=== PATIENT | female | born 1985 | race Caucasian/White ===

== ENCOUNTER → 2017-03-15 | Outpatient (REF) | payer OTHER | LOC: M LAB REF 16:21 | PROVIDERS: ATTEND Physician Assistant | DX: N39.0 Urinary tract infection, site not specified (principal) ==

== ENCOUNTER 2017-12-30 23:51 | Emergency (ER) | payer OTHER ==
[2017-12-31] MEDS: IBUPROFEN 800 MG TAB PO (01:10)
== END 2017-12-31 01:19 | disposition home or self-care (01) ==
LOC: M ED 23:51
DX: S93.502A Unspecified sprain of left great toe, initial encounter (principal); X50.0XXA Overexertion from strenuous movement or load, initial encounter; Y92.89 Other specified places as the place of occurrence of the external cause
CPT/HCPCS: 73660

== ENCOUNTER → 2018-07-24 | Outpatient (REF) | payer OTHER | LOC: M WUC 12:08 | DX: J20.9 Acute bronchitis, unspecified (principal); J02.9 Acute pharyngitis, unspecified ==

== ENCOUNTER → 2018-07-29 | Outpatient (CLI) | payer OTHER | LOC: M WUC 09:51 | DX: R05 Cough (principal); R50.9 Fever, unspecified | CPT/HCPCS: 71046 ==

== ENCOUNTER 2021-06-01 15:56 | Emergency (ER) | payer OTHER ==
[~2021-06-01] VITALS: Ht 160 cm; Wt 150.0 kg
--- NOTE | 2021-06-01 17:17 | REP ---
INDICATION: SOB. COMPARISON: 07/29/2018 the latest prior TECHNIQUE: Portable FINDINGS: The technique utilized in obtaining the radiograph has magnified the cardiac silhouette and attenuated the interstitial markings. The cardiomediastinal silhouette is unchanged and again seen to be within normal limits. Nodular densities are seen throughout both lung cole representing a change from the prior exam. There are no patchy opacities or pleural effusion. The osseous structures are within normal limits. IMPRESSION: Numerous parenchymal nodules. Contrast-enhanced CT examination of the chest is recommended. <Electronically signed by Iván Birch > 06/01/21 [id number]
[2021-06-01 18:15] VITALS: BP 118/63
[2021-06-01] MEDS ORDERED: IBUP-1114 PO (18:17)
[2021-06-01 18:19] VITALS: O2SAT 98
[2021-06-01 19:14] LABS: BASO % 0.3 % (0.0-1.0); EOS % 0.3 % (0.0-3.0); HEMATOCRIT 38.5 % (36.0-47.0); HEMOGLOBIN 12.4 g/dl (12.0-15.5); LYMPH # 1.9 10^3/uL (1.5-5.0); LYMPH % 30.1 % (24.0-44.0); MEAN CORPUSCULAR HEMOGLOBIN 26.6 pg (27.0-33.0); MEAN CORPUSCULAR HGB CONC 32.2 g/dl (32.0-36.5); MEAN CORPUSCULAR VOLUME 82.6 fl (80.0-96.0); MONO # 0.3 10^3/uL (0.0-0.8); MONO % 5.4 % (2.0-8.0); NEUTROPHILS % 63.4 % (36.0-66.0); RED BLOOD COUNT 4.66 10^6/uL (4.00-5.40); WHITE BLOOD COUNT 6.3 10^3/uL (4.0-10.0)
[2021-06-01 19:32] LABS: PLATELET COUNT, AUTOMATED 195 10^3/uL (150-450)
[2021-06-01 19:39] LABS: INR 0.96; PARTIAL THROMBOPLASTIN TIME 27.8 SECONDS (25.9-37.0); PROTHROMBIN TIME 13.2 SECONDS (12.7-14.5)
[2021-06-01 19:42] LABS: D-DIMER QUANT 583.63 ng/ml (<500)
[2021-06-01 21:11] LABS: HCG, SERUM QUALITATIVE NEGATIVE (NEGATIVE)
[2021-06-01 21:14] LABS: ALBUMIN 3.5 GM/DL (3.2-5.2); ALT/SGPT 47 U/L (12-78); BILIRUBIN,TOTAL 0.7 MG/DL (0.2-1.0); BLOOD UREA NITROGEN 12 MG/DL (7-18); C REACTIVE PROTEIN QUANTITATIV 6.84 MG/DL (0.00-0.30); CALCIUM LEVEL 8.1 MG/DL (8.5-10.1); CARBON DIOXIDE LEVEL 26 MEQ/L (21-32); CHLORIDE LEVEL 103 MEQ/L (98-107); CK-MB VALUE MASS 1.4 NG/ML (<3.6); CPK CREATINE PHOSPHOKINASE 255 U/L (26-192); FERRITIN 192 NG/ML (8-252); GLOMERULAR FILTRATION RATE > 60.0 (>60); GLUCOSE, FASTING 84 MG/DL (70-100); LDH LACTATE DEHYDROGENASE 291 U/L (84-246); MB/CK RELATIVE INDEX 0.55 (< OR =4); POTASSIUM SERUM 3.5 MEQ/L (3.5-5.1); SODIUM LEVEL 137 MEQ/L (136-145); TOTAL PROTEIN 7.2 GM/DL (6.4-8.2); TROPONIN I < 0.02 NG/ML (< 0.10)
[2021-06-01] MEDS ORDERED: ISOVUE-370 76% 100ML VIAL As Ordered ONE (22:17)
--- NOTE | 2021-06-01 23:20 | REPVR ---
PROCEDURE INFORMATION: Exam: CTA Chest With Contrast Exam date and time: 06/01/2021 10:39 PM Age: 35 years old Clinical indication: Other: Covid; Additional info: Abnornal chest xray/ covid TECHNIQUE: Imaging protocol: Computed tomographic angiography of the chest with contrast. 3D rendering (Not supervised by radiologist): MIP and/or 3D reconstructed images were created by the technologist. Radiation optimization: All CT scans at this facility use at least one of these dose optimization techniques: automated exposure control; mA and/or kV adjustment per patient size (includes targeted exams where dose is matched to clinical indication); or iterative reconstruction. Contrast material: ISOVUE 370; Contrast volume: 100 ml; Contrast route: INTRAVENOUS (IV); COMPARISON: CR Chest, 1 view 06/01/2021 5:04 PM FINDINGS: Pulmonary arteries: The main pulmonary artery measures 28 mm. No gross central pulmonary embolism is identified. Aorta: The ascending thoracic aorta measures 30 mm. Lungs: Scattered bilateral focal pulmonary infiltrates with slight interstitial coarsening and minimal fibro-atelectatic change. Motion artifact in the lungs with some image degradation. Pleural spaces: Unremarkable. No pneumothorax. No pleural effusion. Heart: Unremarkable. No cardiomegaly. No pericardial effusion. Lymph nodes: Unremarkable. No enlarged lymph nodes. Kidneys and ureters: Partial visualization of left renal cyst measuring 2.3 cm which is incompletely visualized. Bones/joints: Unremarkable. No acute fracture. Soft tissues: Unremarkable. IMPRESSION: 1. Scattered bilateral focal pulmonary infiltrates with slight interstitial coarsening and minimal fibro-atelectatic change consistent with pneumonia and the stated history of Covid. 2. Motion artifact in the lungs with image degradation. No gross central pulmonary embolism is identified. COMMENTS: Consistent with the [employer]'s Incidental Findings Committee white paper (J Am Radha Radiol 2018): Any incidental renal lesion less than 1 cm or classified as too small to characterize, or any incidental cystic renal lesion characterized as simple-appearing, is likely benign. No follow-up imaging is recommended for these lesions per consensus recommendations based on imaging criteria. Electronically signed by: Ruben Wheat On 06/01/2021 23:20:26 PM
== END 2021-06-02 01:26 | disposition home or self-care (01) ==
LOC: M ED 15:56
DX: U07.1 COVID-19 (principal); N80.9 Endometriosis, unspecified; E66.9 Obesity, unspecified
CPT/HCPCS: 36415; 36600; 71045; 71275; 80053; 82550; 82553; 82728; 82803; 83605; 83615; 84703; 85025; 85379; 85384; 85610; 85730; 86140; 87040; 87798; 99284; Q9967

== ENCOUNTER 2021-06-02 01:25 | Outpatient (CLI) | payer OTHER ==
[~2021-06-02] VITALS: Ht 160 cm; Wt 153.4 kg
--- NOTE | 2021-06-02 00:16 | HPEPDOC ---
[facility], [place] Medical History & Physical Date of Admission Jun 02, 2021 Date of Service: Jun 02, 2021 Attending Physician: OMAR ABBASI MD History and Physical CHIEF COMPLAINT: [35 y/o female c/o cough, n/v/d x5 days] HISTORY OF PRESENT ILLNESS: [This is a 35 y/o female with a pmh of morbid obesity who presents to our ED on 06/01 with a cc of cough sometimes productive of white sputum, n/v/d x5 days. Patient states that she has not been able to eat or drink almost anything in the past 3 days d'/t her symptoms and illness. Patient states that she occasionally experiences some chest tightness with her cough. Patient states that she does not believe that she has been around anyone sick recently and is not sure where she would have picked up illness. Patient, at the time of my exam, states that she is just very hungry and thirsty. Patient denies headaches, chest pain, sob, syncope, abd pain, pedal edema, calf pain. Patient did not receive her covid vaccine. Patient tested positive for coronavirus in our ED.] PAST MEDICAL HISTORY: 1. [See HPI PAST SURGICAL HISTORY: 1. [ x2]. SOCIAL HISTORY: Tobacco use:[Denies] ETOH: [Denies] Illicit drug use: [Denies] FAMILY HISTORY: Reviewed - none pertinent ALLERGIES: Please see below. REVIEW OF SYSTEMS: CONSTITUTIONAL: [Admits to shaking chills]. HEENT: [See HPI]. CARDIOVASCULAR: [See HPI]. RESPIRATORY: [See HPI]. GASTROINTESTINAL: [See HPI]. GENITOURINARY: [Denies dysuria]. SKIN: [Denies rash]. MUSCULOSKELETAL: [Denies acute joint/back pain]. NEUROLOGICAL: [Denies syncope, paresthesias]. ENDOCRINE: [Denies hx of DM]. HEMATOLOGIC/LYMPHATIC: [Denies easy bruising]. HOME MEDICATIONS: Please see below. PHYSICAL EXAMINATION: VITAL SIGNS: Please see below. GENERAL APPEARANCE: [Obese diaphoretic 35 y/o female who is alert and oriented to all questioning. She does not appear to be in any acute distress.]. HEENT: [No mass or lesion. EOMI. Nos scleral icterus. Nares patent. Oral mucosa moist]. CARDIOVASCULAR: [Regular rate, rhythm. No murmurs, rubs, gallops]. LUNGS: [Good air flow b/l. No wheezing, rales, rhonchi]. ABDOMEN: [Soft, nontender]. MUSCULOSKELETAL: [No joint deformity]. EXTREMITIES: [No pedal edema appreciated. Pulses intact. No overlying skin changes]. NEUROLOGICAL: [Speech clear. A+Ox3. No focal deficits]. PSYCHIATRIC: [Mood and affect appear appropriate.]. LABORATORY DATA: See below. IMAGING: [CXR: FINDINGS: The technique utilized in obtaining the radiograph has magnified the cardiac silhouette and attenuated the interstitial markings. The cardiomediastinal silhouette is unchanged and again seen to be within normal limits. Nodular densities are seen throughout both lung cole representing a change from the prior exam. There are no patchy opacities or pleural effusion. The osseous structures are within normal limits. IMPRESSION: Numerous parenchymal nodules. Contrast-enhanced CT examination of the chest is recommended. CTA Chest: FINDINGS: Pulmonary arteries: The main pulmonary artery measures 28 mm. No gross central pulmonary embolism is identified. Aorta: The ascending thoracic aorta measures 30 mm. Lungs: Scattered bilateral focal pulmonary infiltrates with slight interstitial coarsening and minimal fibro-atelectatic change. Motion artifact in the lungs with some image degradation. Pleural spaces: Unremarkable. No pneumothorax. No pleural effusion. Heart: Unremarkable. No cardiomegaly. No pericardial effusion. Lymph nodes: Unremarkable. No enlarged lymph nodes. Kidneys and ureters: Partial visualization of left renal cyst measuring 2.3 cm which is incompletely visualized. Bones/joints: Unremarkable. No acute fracture. Soft tissues: Unremarkable. IMPRESSION: 1. Scattered bilateral focal pulmonary infiltrates with slight interstitial coarsening and minimal fibro-atelectatic change consistent with pneumonia and the stated history of Covid. 2. Motion artifact in the lungs with image degradation. No gross central pulmonary embolism is identified. ] MICROBIOLOGY: Please see below. ASSESSMENT: [This is a 35 y/o female with a pmh of morbid obesity who presents to our ED on 06/01 with a cc of cough sometimes productive of white sputum, n/v/d x5 days. Patient states that she has not been able to eat or drink almost anything in the past 3 days d'/t her symptoms and illness. Patient tested positive for coronavirus in our ED.]. . PLAN: 1. [Covid - patient not hypoxic, does not meet criteria for covid admission - patient good candidate for outpatient infusion of monoclonal antibody - discussed risks/benefits of infusion - will fill out consent form - will have epi, solumedrol and benadryl on standby should adverse event occur - patient may be dc'ed after infusion and observation period pending no complications]. Home Medications Scheduled Ibuprofen (Ibuprofen) 400 Mg Tablet, 1 TAB PO TID for fever Allergies Coded Allergies: No Known Allergies (Unverified , 06/01/21) A-FIB/CHADSVASC A-FIB History Current/History of A-Fib/PAF?: No CHRISTOPHE CAR Jun 02, 2021 00:16 OMAR ABBASI MD Jun 08, 2021 06:34
[~2021-06-02 01:25] MED LIST: ALBUTEROL 90 MCG/ACT 8GM HFA INHALER INH PRN; ALBUTEROL SULFATE 2.5 MG/0.5 ML INH NEB SOLN INH PRN; EPINEPHrine INJ 1 MG/ML 1ML AMP IM PRN; IBUP-1114 PO; NS 1,000 ML IV SCH; diphenhydrAMINE 50MG/ML VIAL (J1200) IV PRN; methylPREDNISolone 125MG 2ML VIAL IV PRN
[2021-06-02 01:40] VITALS: BP 120/69
[2021-06-02] MEDS ORDERED: ACETAMINOPHEN 500 MG TAB PO ONE (02:00)
[2021-06-02] MEDS ORDERED: CASIRIVIMAB/IMDEVIMAB 1,200 MG in NS 250 ML IV ONE (02:00)
[2021-06-02 02:30] VITALS: BP 120/69
[2021-06-02 03:00] VITALS: BP 120/69
[2021-06-02 03:30] VITALS: BP 98/53
[2021-06-02 04:00] VITALS: BP 104/59
[2021-06-02 04:30] VITALS: BP 105/55
== END 2021-06-02 04:40 | disposition home or self-care (01) ==
LOC: M OPCLI4 01:25 → M 4MAIN 01:26 → M OPCLI4 04:40
PROVIDERS: ATTEND Internal Medicine
DX: U07.1 COVID-19 (principal)

== ENCOUNTER → 2022-10-07 | Outpatient (CLI) | payer OTHER ==
[~2022-10-07] MED LIST changes: -ALBUTEROL 90 MCG/ACT 8GM HFA INHALER INH PRN; -ALBUTEROL SULFATE 2.5 MG/0.5 ML INH NEB SOLN INH PRN; -EPINEPHrine INJ 1 MG/ML 1ML AMP IM PRN; -NS 1,000 ML IV SCH; -diphenhydrAMINE 50MG/ML VIAL (J1200) IV PRN; -methylPREDNISolone 125MG 2ML VIAL IV PRN
[2022-10-07 11:06] LABS: HEMATOCRIT 38.5 % (36.0-47.0); HEMOGLOBIN 12.3 g/dl (12.0-15.5); MEAN CORPUSCULAR HEMOGLOBIN 26.5 pg (27.0-33.0); MEAN CORPUSCULAR HGB CONC 31.9 g/dl (32.0-36.5); PLATELET COUNT, AUTOMATED 308 10^3/uL (150-450); RED BLOOD COUNT 4.64 10^6/uL (4.00-5.40); WHITE BLOOD COUNT 10.6 10^3/uL (4.0-10.0)
[2022-10-07 11:27] LABS: ERYTHROCYTE SEDIMENTATION RATE 45 mm/hr (0-20)
[2022-10-07 11:31] LABS: ALBUMIN 3.2 G/DL (3.2-5.2); ALKALINE PHOSPHATASE 59 U/L (46-116); ALT/SGPT 52 U/L (7.0-40); AST/SGOT 41 U/L (<34); BILIRUBIN,TOTAL 0.8 MG/DL (0.3-1.2); BLOOD UREA NITROGEN 9 MG/DL (9-23); CALCIUM LEVEL 8.7 MG/DL (8.5-10.1); CARBON DIOXIDE LEVEL 25 MMOL/L (20-31); CHLORIDE LEVEL 104 MMOL/L (98-107); CHOLESTEROL LEVEL 158 MG/DL (<200); CREATININE FOR GFR 0.67 MG/DL (0.55-1.30); GLOMERULAR FILTRATION RATE > 60.0 (>60); GLUCOSE, FASTING 106 MG/DL (60-100); HDL CHOLESTEROL 36.7 MG/DL (>40); LDL CHOLESTEROL 99.3 MG/DL (<100); NON-HDL-C 121 MG/DL; POTASSIUM SERUM 4.1 MMOL/L (3.5-5.1); RHEUMATOID FACTOR QUANT 4.8 IU/ML (<14); SODIUM LEVEL 137 MMOL/L (136-145); TOTAL PROTEIN 6.6 G/DL (5.7-8.2); TRIGLYCERIDES LEVEL 110 MG/DL (<150)
[2022-10-07 11:33] LABS: FREE T4 1.07 NG/DL (0.89-1.76); THYROID STIMULATING HORMONE 0.546 uIU/ML (0.55-4.78); TOTAL 25(OH) VITAMIN D 16.9 NG/ML (20.0-100.0)
[2022-10-07 12:11] LABS: HEPATITIS C VIRUS ABY INDEX 0.1 INDEX (<0.8)
[2022-10-07 13:26] LABS: HIV SCREEN CENTAUR SOURCE NEGATIVE (NEGATIVE)
== END ==
LOC: M LAB 10:24
PROVIDERS: ATTEND Physician Assistant
DX: Z11.59 Encounter for screening for other viral diseases (principal); Z11.4 Encounter for screening for human immunodeficiency virus [HIV]; E03.0 Congenital hypothyroidism with diffuse goiter; E55.9 Vitamin D deficiency, unspecified; Z13.220 Encounter for screening for lipoid disorders; M25.50 Pain in unspecified joint

== ENCOUNTER 2022-11-13 20:24 | Emergency (ER) | payer OTHER ==
[~2022-11-13] VITALS: Ht 160 cm; Wt 157.6 kg
[2022-11-13] MEDS ORDERED: vitamin D3 PO (20:32)
[2022-11-13] MEDS ORDERED: LISI10TA22 PO (20:32)
[2022-11-13] MEDS ORDERED: KETOROLAC 60MG 2ML VIAL IM ONE (23:00)
[2022-11-13] MEDS ORDERED: KETO10TAB PO (23:17)
[2022-11-13 23:27] VITALS: BP 121/64
== END 2022-11-13 23:30 | disposition home or self-care (01) ==
LOC: M ED 20:24
DX: M25.511 Pain in right shoulder (principal); E66.9 Obesity, unspecified; Z79.899 Other long term (current) drug therapy

== ENCOUNTER → 2022-11-15 | Outpatient (REF) | payer OTHER ==
[~2022-11-15] MED LIST changes: +KETO10TAB PO; +LISI10TA22 PO; +vitamin D3 PO
[2022-11-15 13:27] LABS: HEMOGLOBIN A1c 5.8 % (4.0-6.0)
[2022-11-15 13:56] LABS: TOTAL IRON BINDING CAPACITY 377 UG/DL (250-425)
[2022-11-15 13:59] LABS: ALBUMIN 3.3 G/DL (3.2-5.2); ALKALINE PHOSPHATASE 69 U/L (46-116); ALT/SGPT 34 U/L (7.0-40); AST/SGOT 22 U/L (<34); BILIRUBIN,DIRECT 0.3 MG/DL (<0.4); BILIRUBIN,TOTAL 0.9 MG/DL (0.3-1.2); BLOOD UREA NITROGEN 15 MG/DL (9-23); CALCIUM LEVEL 8.4 MG/DL (8.5-10.1); CARBON DIOXIDE LEVEL 26 MMOL/L (20-31); CHLORIDE LEVEL 104 MMOL/L (98-107); CREATININE FOR GFR 0.68 MG/DL (0.55-1.30); FERRITIN 39.7 NG/ML (7.3-270.7); FREE T4 1.05 NG/DL (0.89-1.76); GLOMERULAR FILTRATION RATE > 60.0 (>60); GLUCOSE, FASTING 99 MG/DL (60-100); IRON (FE) 45 UG/DL (50-170); PERCENT SATURATION 11.9 % (13.2-45.0); POTASSIUM SERUM 4.5 MMOL/L (3.5-5.1); SODIUM LEVEL 137 MMOL/L (136-145); THYROID STIMULATING HORMONE 0.732 uIU/ML (0.55-4.78); TOTAL PROTEIN 6.9 G/DL (5.7-8.2)
== END ==
LOC: M LAB REF 12:34
PROVIDERS: ATTEND Physician Assistant
DX: Z86.39 Personal history of other endocrine, nutritional and metabolic disease (principal)

== ENCOUNTER → 2023-01-25 | Outpatient (CLI) | payer OTHER ==
[~2023-01-25] MED LIST changes: +ISOVUE-300 61% 100ML VIAL As Ordered ONE; +LIDOCAINE 1% MDV 20ML VIAL As Ordered ONE; +PROHANCE 279.3MG/ML 5ML VIAL As Ordered ONE
== END ==
LOC: M RAD 10:39
PROVIDERS: ATTEND Physician Assistant
DX: M25.511 Pain in right shoulder (principal)
CPT/HCPCS: 23350; 73223; 77002; A9576; Q9967

== ENCOUNTER 2023-02-25 21:04 | Emergency (ER) | payer MEDICARE, OTHER ==
[~2023-02-25] VITALS: Ht 160 cm; Wt 157.1 kg
[~2023-02-25 21:04] MED LIST changes: -ISOVUE-300 61% 100ML VIAL As Ordered ONE; -LIDOCAINE 1% MDV 20ML VIAL As Ordered ONE; -PROHANCE 279.3MG/ML 5ML VIAL As Ordered ONE
[2023-02-25 21:05] VITALS: BP 159/76
[2023-02-25] MEDS ORDERED: HYDROCORTISONE 1% OINTMENT 30GM TOP STA (23:36)
[2023-02-25] MEDS ORDERED: predniSONE 20 MG TAB PO ONE (23:40)
[2023-02-25] MEDS ORDERED: CETI-24 PO (23:43)
[2023-02-25] MEDS ORDERED: PRED20TA PO (23:43)
[2023-02-25] MEDS ORDERED: HYDR1CRE30 TOP (23:43)
[2023-02-25] MEDS ORDERED: HYDROCORTISONE 1% CREAM 30GM TOP ONE (23:55)
== END 2023-02-26 00:09 | disposition home or self-care (01) ==
LOC: M ED 21:04
DX: S20.96XA Insect bite (nonvenomous) of unspecified parts of thorax, initial encounter (principal); W57.XXXA Bitten or stung by nonvenomous insect and other nonvenomous arthropods, initial encounter; Y92.89 Other specified places as the place of occurrence of the external cause; Y93.89 Activity, other specified; Y99.8 Other external cause status
CPT/HCPCS: 99282; J7512

== ENCOUNTER → 2023-03-06 | Outpatient (CLI) | payer OTHER ==
[~2023-03-06] MED LIST changes: +CETI-24 PO; +HYDR1CRE30 TOP; +PRED20TA PO
== END ==
LOC: M WHC 06:43
PROVIDERS: ATTEND Specialist
DX: N80.9 Endometriosis, unspecified (principal)

== ENCOUNTER → 2023-05-23 | Outpatient (CLI) | payer OTHER ==
[2023-05-23 12:14] LABS: BASO % 0.4 % (0.0-1.0); EOS # 0.2 10^3/uL (0.0-0.5); HEMATOCRIT 39.2 % (36.0-47.0); HEMOGLOBIN 12.5 g/dl (12.0-15.5); LYMPH # 3.6 10^3/uL (1.5-5.0); LYMPH % 39.5 % (24.0-44.0); MEAN CORPUSCULAR HEMOGLOBIN 26.9 pg (27.0-33.0); MEAN CORPUSCULAR HGB CONC 31.9 g/dl (32.0-36.5); MEAN CORPUSCULAR VOLUME 84.5 fl (80.0-96.0); MONO # 0.5 10^3/uL (0.0-0.8); MONO % 5.3 % (2.0-8.0); NEUTROPHILS # 4.8 10^3/uL (1.5-8.5); NEUTROPHILS % 52.3 % (36.0-66.0); PLATELET COUNT, AUTOMATED 288 10^3/uL (150-450); RED BLOOD COUNT 4.64 10^6/uL (4.00-5.40); WHITE BLOOD COUNT 9.1 10^3/uL (4.0-10.0)
[2023-05-23 12:42] LABS: ALBUMIN 3.4 G/DL (3.2-5.2); ALKALINE PHOSPHATASE 58 U/L (46-116); ALT/SGPT 46 U/L (7.0-40); AST/SGOT 27 U/L (<34); BILIRUBIN,TOTAL 0.5 MG/DL (0.3-1.2); BLOOD UREA NITROGEN 14 MG/DL (9-23); CALCIUM LEVEL 8.6 MG/DL (8.5-10.1); CARBON DIOXIDE LEVEL 28 MMOL/L (20-31); CHLORIDE LEVEL 105 MMOL/L (98-107); CREATININE FOR GFR 0.64 MG/DL (0.55-1.30); GLOMERULAR FILTRATION RATE > 60.0 (>60); GLUCOSE, FASTING 109 MG/DL (60-100); IRON (FE) 44 UG/DL (50-170); PERCENT SATURATION 11.6 % (13.2-45.0); POTASSIUM SERUM 4.6 MMOL/L (3.5-5.1); SODIUM LEVEL 139 MMOL/L (136-145); TOTAL IRON BINDING CAPACITY 378 UG/DL (250-425); TOTAL PROTEIN 6.6 G/DL (5.7-8.2)
[2023-05-23 12:47] LABS: FERRITIN 31.8 NG/ML (7.3-270.7); FREE T4 0.99 NG/DL (0.89-1.76); THYROID STIMULATING HORMONE 1.258 uIU/ML (0.55-4.78)
[2023-05-23 12:48] LABS: TOTAL 25(OH) VITAMIN D 28.7 NG/ML (20.0-100.0)
[2023-05-23 13:11] LABS: HEMOGLOBIN A1c 5.9 % (4.0-6.0)
== END ==
LOC: M WUC 09:06
PROVIDERS: ATTEND Physician Assistant
DX: E61.1 Iron deficiency (principal)

== ENCOUNTER → 2023-07-06 | Outpatient (REF) | payer OTHER, MEDICARE ==
[2023-07-06 18:45] LABS: BLOOD UREA NITROGEN 15 MG/DL (9-23); CALCIUM LEVEL 9.1 MG/DL (8.5-10.1); CARBON DIOXIDE LEVEL 26 MMOL/L (20-31); CHLORIDE LEVEL 105 MMOL/L (98-107); CREATININE FOR GFR 0.64 MG/DL (0.55-1.30); GLOMERULAR FILTRATION RATE > 60.0 (>60); GLUCOSE, FASTING 97 MG/DL (60-100); POTASSIUM SERUM 4.9 MMOL/L (3.5-5.1); SODIUM LEVEL 136 MMOL/L (136-145)
[2023-07-06 18:56] LABS: BASO % 0.5 % (0.0-1.0); EOS # 0.2 10^3/uL (0.0-0.5); EOS % 2.3 % (0.0-3.0); HEMATOCRIT 41.3 % (36.0-47.0); HEMOGLOBIN 13.3 g/dl (12.0-15.5); LYMPH # 3.3 10^3/uL (1.5-5.0); LYMPH % 39.3 % (24.0-44.0); MEAN CORPUSCULAR HEMOGLOBIN 27.3 pg (27.0-33.0); MEAN CORPUSCULAR HGB CONC 32.2 g/dl (32.0-36.5); MEAN CORPUSCULAR VOLUME 84.8 fl (80.0-96.0); MONO # 0.5 10^3/uL (0.0-0.8); MONO % 5.7 % (2.0-8.0); NEUTROPHILS # 4.4 10^3/uL (1.5-8.5); NEUTROPHILS % 51.8 % (36.0-66.0); PLATELET COUNT, AUTOMATED 331 10^3/uL (150-450); RED BLOOD COUNT 4.87 10^6/uL (4.00-5.40); WHITE BLOOD COUNT 8.4 10^3/uL (4.0-10.0)
== END ==
LOC: M LAB REF 16:28
PROVIDERS: ATTEND Nurse Practitioner Family
DX: Z01.818 Encounter for other preprocedural examination (principal)

== ENCOUNTER 2023-07-28 10:05 | Day surgery (SDC) | payer OTHER ==
[~2023-07-28] VITALS: Ht 160 cm; Wt 160.1 kg
[2023-07-28 10:41] LABS: HEMATOCRIT 37.9 % (36.0-47.0); HEMOGLOBIN 12.4 g/dl (12.0-15.5); MEAN CORPUSCULAR HEMOGLOBIN 27.4 pg (27.0-33.0); MEAN CORPUSCULAR HGB CONC 32.7 g/dl (32.0-36.5); MEAN CORPUSCULAR VOLUME 83.8 fl (80.0-96.0); PLATELET COUNT, AUTOMATED 275 10^3/uL (150-450); RED BLOOD COUNT 4.52 10^6/uL (4.00-5.40); WHITE BLOOD COUNT 8.4 10^3/uL (4.0-10.0)
[2023-07-28] MEDS ORDERED: LR 1,000 ML IV SCH ×2 (11:00→13:10)
[2023-07-28] MEDS ORDERED: ROCURONIUM BROMIDE 50MG/5ML VIAL As Ordered ONE (11:17)
[2023-07-28] MEDS ORDERED: ONDANSETRON 4MG 2ML VIAL As Ordered ONE (11:17)
[2023-07-28] MEDS ORDERED: KETOROLAC 60MG 2ML VIAL As Ordered ONE (11:17)
[2023-07-28] MEDS ORDERED: LIDOCAINE 2% 100MG/5ML SDV (FOR ANES.) As Ordered ONE (11:17)
[2023-07-28] MEDS ORDERED: SUGAMMADEX SODIUM 500 MG/5 ML VIAL (BRIDION) As Ordered ONE (11:17)
[2023-07-28] MEDS ORDERED: propofoL 200 MG/20 ML VIAL As Ordered ONE (11:17)
[2023-07-28] MEDS ORDERED: fentaNYL 100 MCG/2 ML INJECTION As Ordered ONE (11:23)
[2023-07-28] MEDS ORDERED: MIDAZOLAM INJ 2MG/2ML VIAL As Ordered ONE (11:23)
[2023-07-28] MEDS ORDERED: GLYCOPYRROLATE INJ 0.2 MG/ML 2 ML VIAL As Ordered ONE (11:25)
[2023-07-28] MEDS ORDERED: ACETAMINOPHEN 1000MG 100ML IV BAG As Ordered ONE (12:28)
[2023-07-28] MEDS ORDERED: fentaNYL 100 MCG/2 ML INJECTION IV PRN (13:10)
[2023-07-28] MEDS ORDERED: ONDANSETRON 4MG 2ML VIAL IV PRN (13:10)
[2023-07-28] MEDS ORDERED: IBUP-1022 PO (13:42)
[2023-07-28] MEDS ORDERED: OXYC1TAB23 PO (13:43)
[2023-07-28] MEDS: oxyCODONE 5MG TAB PO PRN ×2 (14:06→14:37)
[2023-07-28 14:50] VITALS: BP 136/82; TEMP 97.7; O2SAT 96
== END 2023-07-28 15:17 | disposition home or self-care (01) ==
LOC: M SDC 10:05
PROVIDERS: ATTEND Specialist
DX: N80.C19 Endometriosis of the anterior abdominal wall, unspecified depth (principal); Z68.44 Body mass index [BMI] 60.0-69.9, adult; I10 Essential (primary) hypertension; Z79.899 Other long term (current) drug therapy
CPT/HCPCS: 22902; 36415; 81025; 85027; 88304; J0131; J0665; J1100; J1885; J2250; J2405; J3010

== ENCOUNTER → 2024-07-18 | Outpatient (CLI) | payer MEDICARE, OTHER ==
[~2024-07-18] MED LIST changes: +IBUP-1022 PO; +OXYC1TAB23 PO
[2024-07-18 14:50] LABS: BASO % 0.2 % (0.0-1.0); EOS % 0.1 % (0.0-3.0); HEMATOCRIT 38.4 % (36.0-47.0); HEMOGLOBIN 12.4 g/dl (12.0-15.5); LYMPH # 5.6 10^3/uL (1.5-5.0); LYMPH % 32.4 % (24.0-44.0); MEAN CORPUSCULAR HEMOGLOBIN 26.9 pg (27.0-33.0); MEAN CORPUSCULAR HGB CONC 32.3 g/dl (32.0-36.5); MEAN CORPUSCULAR VOLUME 83.3 fl (80.0-96.0); MONO # 0.8 10^3/uL (0.0-0.8); MONO % 4.8 % (2.0-8.0); NEUTROPHILS # 10.7 10^3/uL (1.5-8.5); PLATELET COUNT, AUTOMATED 342 10^3/uL (150-450); RED BLOOD COUNT 4.61 10^6/uL (4.00-5.40); WHITE BLOOD COUNT 17.2 10^3/uL (4.0-10.0)
[2024-07-18 15:10] LABS: BLOOD UREA NITROGEN 18 MG/DL (9-23); CALCIUM LEVEL 9.1 MG/DL (8.5-10.1); CARBON DIOXIDE LEVEL 26 MMOL/L (20-31); CHLORIDE LEVEL 107 MMOL/L (98-107); CREATININE FOR GFR 0.66 MG/DL (0.55-1.30); GLOMERULAR FILTRATION RATE > 60.0 (>58); GLUCOSE, FASTING 120 MG/DL (60-100); POTASSIUM SERUM 3.7 MMOL/L (3.5-5.1); SODIUM LEVEL 140 MMOL/L (136-145)
== END ==
LOC: M EKG 13:43
PROVIDERS: ATTEND Physician Assistant
DX: Z01.818 Encounter for other preprocedural examination (principal); I10 Essential (primary) hypertension

== ENCOUNTER → 2024-08-05 | Outpatient (CLI) | payer OTHER ==
[~2024-08-05] MED LIST changes: +BUSP5TA PO; +ORIL150T PO; +VENTAER INH; +VITA100093 PO
[2024-08-05 14:58] LABS: HEMOGLOBIN 12.1 g/dl (12.0-15.5); MEAN CORPUSCULAR HGB CONC 32.7 g/dl (32.0-36.5); MEAN CORPUSCULAR VOLUME 82.6 fl (80.0-96.0); PLATELET COUNT, AUTOMATED 275 10^3/uL (150-450); RED BLOOD COUNT 4.48 10^6/uL (4.00-5.40); WHITE BLOOD COUNT 8.4 10^3/uL (4.0-10.0)
== END ==
LOC: M LAB 14:24
PROVIDERS: ATTEND Physician Assistant
DX: D72.829 Elevated white blood cell count, unspecified (principal)

== ENCOUNTER 2024-08-19 08:22 | Day surgery (SDC) | payer OTHER ==
[~2024-08-19] VITALS: Ht 160 cm; Wt 161.2 kg
[2024-08-19] MEDS ORDERED: HYDROmorphone HCL 2MG/ML 1ML VIAL As Ordered ONE (08:43)
[2024-08-19] MEDS ORDERED: fentaNYL 100 MCG/2 ML INJECTION As Ordered ONE (08:44)
[2024-08-19] MEDS ORDERED: MIDAZOLAM INJ 2MG/2ML VIAL As Ordered ONE (08:44)
[2024-08-19] MEDS ORDERED: METOCLOPRAMIDE INJ 10MG/2ML VIAL As Ordered ONE (08:45)
[2024-08-19] MEDS ORDERED: propofoL 200 MG/20 ML VIAL As Ordered ONE (08:45)
[2024-08-19] MEDS ORDERED: LIDOCAINE 2% 100MG/5ML SDV (FOR ANES.) As Ordered ONE (08:45)
[2024-08-19] MEDS ORDERED: ONDANSETRON 4MG 2ML VIAL As Ordered ONE (08:45)
[2024-08-19] MEDS ORDERED: SUGAMMADEX SODIUM 500 MG/5 ML VIAL (BRIDION) As Ordered ONE (08:45)
[2024-08-19] MEDS ORDERED: ROCURONIUM BROMIDE 50MG/5ML VIAL As Ordered ONE (08:45)
[2024-08-19] MEDS ORDERED: ACETAMINOPHEN 1000MG 100ML IV BAG As Ordered ONE (08:48)
[2024-08-19 09:10] LABS: HEMATOCRIT 39.9 % (36.0-47.0); HEMOGLOBIN 13.1 g/dl (12.0-15.5); MEAN CORPUSCULAR HEMOGLOBIN 27.4 pg (27.0-33.0); MEAN CORPUSCULAR HGB CONC 32.8 g/dl (32.0-36.5); MEAN CORPUSCULAR VOLUME 83.5 fl (80.0-96.0); PLATELET COUNT, AUTOMATED 307 10^3/uL (150-450); RED BLOOD COUNT 4.78 10^6/uL (4.00-5.40); WHITE BLOOD COUNT 8.6 10^3/uL (4.0-10.0)
[2024-08-19] MEDS: NS 250 ML IV SCH (09:15)
[2024-08-19] MEDS ORDERED: COLA100C5 PO (09:41)
[2024-08-19] MEDS: ceFAZolin SOD 2 GM in IV 1 EA IV ONE (09:50)
[2024-08-19] MEDS: ceFAZolin SOD 1 GM in DEXTROSE 5% (D5W) ADV/MINI-BAG 50 ML IV ONE (09:50)
[2024-08-19] MEDS ORDERED: KETOROLAC 60MG 2ML VIAL As Ordered ONE (10:26)
[2024-08-19] MEDS ORDERED: ATROPINE SULF 1MG/10ML SYRINGE As Ordered ONE (10:33)
[2024-08-19] MEDS ORDERED: fentaNYL 100 MCG/2 ML INJECTION IV PRN (11:30)
[2024-08-19] MEDS ORDERED: NS 250 ML IV SCH (11:30)
[2024-08-19] MEDS: oxyCODONE 5MG TAB PO PRN (12:00)
[2024-08-19] MEDS: HYDROMORPHONE HCL 0.5 MG/ 0.5 ML SYRINGE IV PRN (12:00)
[2024-08-19] MEDS: ONDANSETRON 4MG 2ML VIAL IV PRN (12:09)
[2024-08-19] MEDS ORDERED: ePHEDrine SULFATE 25 MG/5 ML(5MG/ML) SYRINGE As Ordered ONE (12:35)
[2024-08-19 14:14] VITALS: BP 140/80; TEMP 97.6; O2SAT 96
== END 2024-08-19 14:45 | disposition home or self-care (01) ==
LOC: M SDC 08:22
PROVIDERS: ATTEND Specialist
DX: D25.2 Subserosal leiomyoma of uterus (principal); N80.03 Adenomyosis of the uterus; N84.0 Polyp of corpus uteri; N88.8 Other specified noninflammatory disorders of cervix uteri; N80.329 Endometriosis of the posterior cul-de-sac, unspecified depth; R10.2 Pelvic and perineal pain; Z68.44 Body mass index [BMI] 60.0-69.9, adult; Z79.899 Other long term (current) drug therapy
CPT/HCPCS: 36415; 58571; 85027; 86850; 86900; 86901; 88307; J0131; J0461; J0665; J0690; J1100; J1171; J1885; J2250; J2405; J2765; J3010; S2900

== ENCOUNTER → 2025-03-01 | Outpatient (CLI) | payer OTHER ==
[~2025-03-01] MED LIST changes: +COLA100C5 PO
[2025-03-01 10:37] LABS: BASO % 0.5 % (0.0-1.0); EOS # 0.2 10^3/uL (0.0-0.5); EOS % 3.4 % (0.0-3.0); HEMATOCRIT 39.2 % (36.0-47.0); HEMOGLOBIN 12.5 g/dl (12.0-15.5); LYMPH # 2.3 10^3/uL (1.5-5.0); LYMPH % 37.5 % (24.0-44.0); MEAN CORPUSCULAR HEMOGLOBIN 25.8 pg (27.0-33.0); MEAN CORPUSCULAR HGB CONC 31.9 g/dl (32.0-36.5); MEAN CORPUSCULAR VOLUME 80.8 fl (80.0-96.0); MONO # 0.3 10^3/uL (0.0-0.8); MONO % 4.5 % (2.0-8.0); NEUTROPHILS # 3.4 10^3/uL (1.5-8.5); NEUTROPHILS % 53.8 % (36.0-66.0); PLATELET COUNT, AUTOMATED 247 10^3/uL (150-450); RED BLOOD COUNT 4.85 10^6/uL (4.00-5.40); WHITE BLOOD COUNT 6.2 10^3/uL (4.0-10.0)
[2025-03-01 10:59] LABS: THYROID STIMULATING HORMONE 0.643 uIU/ML (0.55-4.78)
[2025-03-01 11:03] LABS: FREE T4 1.06 NG/DL (0.89-1.76)
[2025-03-01 11:04] LABS: ALBUMIN 3.4 G/DL (3.2-5.2); ALKALINE PHOSPHATASE 71 U/L (35-104); ALT/SGPT 54 U/L (7.0-40); AST/SGOT 42 U/L (<34); BILIRUBIN,TOTAL 0.9 MG/DL (0.3-1.2); BLOOD UREA NITROGEN 14 MG/DL (9-23); CALCIUM LEVEL 8.7 MG/DL (8.5-10.1); CARBON DIOXIDE LEVEL 28 MMOL/L (20-31); CHLORIDE LEVEL 104 MMOL/L (98-107); CHOLESTEROL LEVEL 162 MG/DL (<200); CREATININE FOR GFR 0.61 MG/DL (0.55-1.30); GLOMERULAR FILTRATION RATE > 90.0 (>58); GLUCOSE, FASTING 130 MG/DL (60-100); IRON (FE) 56 UG/DL (50-170); LDL CHOLESTEROL 97.8 MG/DL (<100); PERCENT SATURATION 14.8 % (13.2-45.0); POTASSIUM SERUM 4.5 MMOL/L (3.5-5.1); SODIUM LEVEL 140 MMOL/L (136-145); TOTAL IRON BINDING CAPACITY 379 UG/DL (250-425); TOTAL PROTEIN 6.8 G/DL (5.7-8.2); TRIGLYCERIDES LEVEL 141 MG/DL (<150)
[2025-03-01 11:06] LABS: HEMOGLOBIN A1c 6.4 % (4.0-6.0)
== END ==
LOC: M LAB 08:42
PROVIDERS: ATTEND Physician Assistant
DX: E61.1 Iron deficiency (principal)

== ENCOUNTER → 2025-06-05 | Outpatient (CLI) | payer OTHER ==
[~2025-06-05] MED LIST changes: -IBUP-1022 PO; +IBUP600T42 PO
[2025-06-05 18:10] LABS: CALCIUM LEVEL 9.2 MG/DL (8.5-10.1); CARBON DIOXIDE LEVEL 27 MMOL/L (20-31); CHLORIDE LEVEL 101 MMOL/L (98-107); CREATININE FOR GFR 0.68 MG/DL (0.55-1.30); GLOMERULAR FILTRATION RATE > 90.0 (>58); POTASSIUM SERUM 4.1 MMOL/L (3.5-5.1); SODIUM LEVEL 140 MMOL/L (136-145)
== END ==
LOC: M LAB 17:09
PROVIDERS: ATTEND Student in an Organized Health Care Education/Training Program
DX: R04.2 Hemoptysis (principal)

== ENCOUNTER → 2025-06-06 | Outpatient (CLI) | payer OTHER ==
[~2025-06-06] MED LIST changes: +ISOVUE-370 76% 100 ML VIAL As Ordered ONE
== END ==
LOC: M RAD 08:16
PROVIDERS: ATTEND Student in an Organized Health Care Education/Training Program
DX: R04.2 Hemoptysis (principal)
CPT/HCPCS: 71275; Q9967

== ENCOUNTER → 2025-07-08 | Outpatient (REF) | payer OTHER ==
[~2025-07-08] MED LIST changes: -ISOVUE-370 76% 100 ML VIAL As Ordered ONE
== END ==
LOC: M LAB REF 17:23
PROVIDERS: ATTEND Nurse Practitioner Family
DX: J00 Acute nasopharyngitis [common cold] (principal)

== ENCOUNTER → 2025-07-10 | Outpatient (CLI) | payer OTHER ==
[2025-07-10 09:59] LABS: BASO # 0.0 10^3/uL (0.0-0.2); BASO % 0.5 % (0.0-1.0); EOS # 0.2 10^3/uL (0.0-0.5); EOS % 3.2 % (0.0-3.0); LYMPH # 2.7 10^3/uL (1.5-5.0); LYMPH % 37.3 % (24.0-44.0); MONO # 0.3 10^3/uL (0.0-0.8); MONO % 4.1 % (2.0-8.0); NEUTROPHILS # 4.0 10^3/uL (1.5-8.5); NEUTROPHILS % 54.6 % (36.0-66.0); PLATELET COUNT, AUTOMATED 263 10^3/uL (150-450)
[2025-07-10 10:41] LABS: IRON (FE) 68 UG/DL (50-170)
[2025-07-10 10:42] LABS: PERCENT SATURATION 17.5 % (13.2-45.0)
[2025-07-10 11:39] LABS: ALT/SGPT 68 U/L (7.0-40); CALCIUM LEVEL 9.1 MG/DL (8.5-10.1); CARBON DIOXIDE LEVEL 30 MMOL/L (20-31); CHLORIDE LEVEL 104 MMOL/L (98-107); CHOLESTEROL LEVEL 191 MG/DL (<200); CHOLESTEROL RISK RATIO 4.76 (<5); CREATININE FOR GFR 0.69 MG/DL (0.55-1.30); GLOMERULAR FILTRATION RATE > 90.0 (>58); LDL CHOLESTEROL 125.5 MG/DL (<100); MAGNESIUM LEVEL 2.1 MG/DL (1.8-2.4); NON-HDL-C 150.9 MG/DL; POTASSIUM SERUM 4.3 MMOL/L (3.5-5.1); SODIUM LEVEL 140 MMOL/L (136-145); TOTAL 25(OH) VITAMIN D 22.2 NG/ML (20.0-100.0); TRIGLYCERIDES LEVEL 127 MG/DL (<150)
[2025-07-10 13:23] LABS: AST/SGOT 51 U/L (<34)
== END ==
LOC: M LAB 09:09
PROVIDERS: ATTEND Nurse Practitioner Family
DX: R00.2 Palpitations (principal); E61.1 Iron deficiency; R74.01 Elevation of levels of liver transaminase levels; E55.9 Vitamin D deficiency, unspecified

== ENCOUNTER → 2025-07-10 | Outpatient (CLI) | payer OTHER ==
[~2025-07-10] MED LIST changes: +ISOVUE-370 76% 100 ML VIAL As Ordered ONE
== END ==
LOC: M RAD 11:32
PROVIDERS: ATTEND Student in an Organized Health Care Education/Training Program
DX: M54.2 Cervicalgia (principal); M47.812 Spondylosis without myelopathy or radiculopathy, cervical region
CPT/HCPCS: 70491; Q9967

== ENCOUNTER 2025-07-20 19:06 | Emergency (ER) | payer OTHER ==
[~2025-07-20] VITALS: Ht 160 cm; Wt 155.9 kg
[~2025-07-20 19:06] MED LIST changes: -ISOVUE-370 76% 100 ML VIAL As Ordered ONE
[2025-07-20 19:08] VITALS: TEMP 97.2
[2025-07-20 20:45] VITALS: BP 137/87; O2SAT 96
== END 2025-07-20 22:16 | disposition home or self-care (01) ==
LOC: M ED 19:06
DX: S83.91XA Sprain of unspecified site of right knee, initial encounter (principal); Y92.9 Unspecified place or not applicable; Y93.9 Activity, unspecified; Y99.9 Unspecified external cause status; W01.0XXA Fall on same level from slipping, tripping and stumbling without subsequent striking against object, initial encounter; J45.909 Unspecified asthma, uncomplicated; Z79.51 Long term (current) use of inhaled steroids; Z79.1 Long term (current) use of non-steroidal anti-inflammatories (NSAID); Z79.899 Other long term (current) drug therapy